=== PATIENT | male | born 1960 | race American Indian/Alaskan Native ===

== ENCOUNTER 2019-07-15 09:38 | Emergency (ER) | payer BC ==
[2019-07-15 10:12] VITALS: BP 140/71
--- NOTE | 2019-07-15 10:15 | Emergency Department Report ---
ED Eye Problem HPI - General Chief complaint: Eye Problems Stated complaint: RED/PAINFUL EYE Time Seen by Provider: 07/15/19 10:10 Source: patient Mode of arrival: Ambulatory Limitations: No Limitations - History of Present Illness Initial comments: pt is a 59 yo male who presents to the ED with c/o right eye pain and irritation that began two days ago. states he has associated crusting and photophobia and drainage. he denies getting anything into the eye. he denies contact lens use. denies any vision changes. no PMHx. no allergies to meds. no sick contacts. - Related Data Previous Rx's Medication Instructions Recorded Last Taken Type Erythromycin [Erythromycin Ophth 1 applic OD QID 7 Days #1 tube 07/15/19 Unknown Rx Oint] Allergies Allergy/AdvReac Type Severity Reaction Status Date / Time No Known Allergies Allergy Unverified 07/15/19 10:12 ED Review of Systems ROS: Stated complaint: RED/PAINFUL EYE Other details as noted in HPI Comment: All other systems reviewed and negative ED Past Medical Hx - Past Medical History Previous Medical History?: No - Surgical History Past Surgical History?: No - Medications Home Medications: Home Medications Medication Instructions Recorded Confirmed Last Taken Type Erythromycin [Erythromycin Ophth 1 applic OD QID 7 Days #1 tube 07/15/19 Unknown Rx Oint] ED Physical Exam - General Limitations: No Limitations General appearance: alert, in no apparent distress - Head Head exam: Present: atraumatic, normocephalic - Eye Eye exam: Present: PERRL, EOMI, conjunctival injection (right sided), other (nevus present to the right eye). Absent: periorbital swelling, periorbital tenderness - ENT ENT exam: Present: mucous membranes moist - Neurological Exam Neurological exam: Present: alert, oriented X3 - Psychiatric Psychiatric exam: Present: normal affect, normal mood - Skin Skin exam: Present: warm, dry, intact ED Course Vital Signs 07/15/19 10:10 Temperature 98.0 F Pulse Rate 54 L Respiratory 18 Rate Blood Pressure 140/71 O2 Sat by Pulse 99 Oximetry ED Medical Decision Making - Medical Decision Making pt is a 59 yo male who presents to the ED with c/o right eye pain and irritation that began two days ago. states he has associated crusting and photophobia and drainage. he denies getting anything into the eye. he denies contact lens use. denies any vision changes. no PMHx. no allergies to meds. no sick contacts. VSS. on exam: PERRL, EOMI, right sided conjunctival injection, nevus present to the right eye, no visualized foreign body, no periorbital edema or TTP. Examination consistent with conjunctivitis. Patient given erythromycin ophthalmic ointment. advised pt to please use medication as prescribed. wash hands frequently. wash bed sheets and pillow cases. do not rub the eyes. follow up with an hr manager in the next 3-5 days. return to the emergency room for any new or worsening symptoms. - Differential Diagnosis conjunctivitis, corneal abrasion, iritis, foreign body Critical care attestation.: If time is entered above; I have spent that time in minutes in the direct care of this critically ill patient, excluding procedure time. ED Disposition Clinical Impression: Conjunctivitis Qualifiers: Conjunctivitis type: unspecified Laterality: right Qualified Code(s): H10.9 - Unspecified conjunctivitis Disposition: TO HOME OR SELFCARE Is pt being admited?: No Does the pt Need Aspirin: No Condition: Stable Instructions: Conjunctivitis (ED) Additional Instructions: please use medication as prescribed. wash hands frequently. wash bed sheets and pillow cases. do not rub the eyes. follow up with an hr manager in the next 3-5 days. return to the emergency room for any new or worsening symptoms. Prescriptions: Erythromycin [Erythromycin Ophth Oint] 1 applic OD QID 7 Days #1 tube Referrals: GRACE CLAIRE MD [Staff Physician] - 3-5 Days Forms: Work/School Release Form(ED) Time of Disposition: 10:18 Print Language: SINHALA
== END 2019-07-15 10:34 | disposition home or self-care (01) ==
LOC: ED 09:38
DX: H10.31 Unspecified acute conjunctivitis, right eye (principal); Z79.899 Other long term (current) drug therapy
CPT/HCPCS: 99282